=== PATIENT | male | born 1960 | race Two or more races ===

== ENCOUNTER 2017-01-26 13:40 | Emergency (ER) | payer OTHER ==
[~2017-01-26] VITALS: Ht 180.3 cm; Wt 108.9 kg
[2017-01-26 14:14] VITALS: BP 127/92
== END 2017-01-26 15:19 | disposition left against medical advice (07) ==
LOC: ER 13:40
DX: S61.210A Laceration without foreign body of right index finger without damage to nail, initial encounter (principal); Z53.21 Procedure and treatment not carried out due to patient leaving prior to being seen by health care provider; W26.0XXA Contact with knife, initial encounter; Y93.89 Activity, other specified; Y99.8 Other external cause status; Y92.89 Other specified places as the place of occurrence of the external cause